=== PATIENT | male | born 1935 | race Caucasian/White ===

== ENCOUNTER 2018-04-06 12:44 | Inpatient (IN) | payer MEDICARE, OTHER ==
[2018-04-06 13:49] LABS: ADD MAN DIFF? NO
[2018-04-06 13:55] LABS: ABNORMAL IP MESSAGE 1; BASOPHILS % 0.4 % (0.0-2.0); EOSINOPHILS # 0.2 10^3/ul (0.0-0.5); EOSINOPHILS % 2.1 % (0.0-7.0); HEMATOCRIT 36.8 % (42.0-52.0); HEMOGLOBIN 11.1 g/dl (14.0-18.0); LYMPHOCYTES # 2.7 10^3/ul (0.8-2.9); LYMPHOCYTES % 26.6 % (15.0-51.0); MEAN CORPUSCULAR HEMOGLOBIN 18.2 pg (29.0-33.0); MEAN CORPUSCULAR HGB CONC 30.2 g/dl (32.0-37.0); MEAN CORPUSCULAR VOLUME 60.2 fl (82.0-101.0); MEAN PLATELET VOLUME 10.7 fl (7.4-10.4); MONOCYTE # 0.9 10^3/ul (0.3-0.9); MONOCYTES % 8.4 % (0.0-11.0); NEUTROPHIL # 6.3 10^3/ul (1.6-7.5); NEUTROPHILS % 62.1 % (39.0-77.0); PLATELET COUNT 337 10^3/UL (140-415); POSITIVE DIFF @See below; RED BLOOD COUNT 6.11 10^6/ul (4.70-6.10); RED CELL DISTRIBUTION WIDTH 17.7 % (11.5-14.5)
[2018-04-06 13:55] LABS: WHITE BLOOD COUNT 10.2 10^3/ul (4.8-10.8)
[2018-04-06] MEDS ORDERED: ACETAMINOPHEN 325 MG TAB PO ×2 (14:00→14:30)
[2018-04-06] MEDS ORDERED: ONDANSETRON 4 MG INJ IV ×3 (14:00→15:00)
[2018-04-06 14:15] LABS: INR 1.18; PROTIME 15.2 Sec (11.9-14.9); PT RATIO 1.2
[2018-04-06 14:16] LABS: PARTIAL THROMBOPLASTIN TIME 36.2 Sec (25.0-35.0)
[2018-04-06] MEDS ORDERED: D5W-0.45 NACL + KCL 20 MEQ 1,000 ML IV (14:19)
[2018-04-06 14:22] LABS: ALANINE AMINOTRANSFERASE 25 IU/L (13-69); ALBUMIN 3.4 g/dl (3.3-4.9); ALBUMIN/GLOBULIN RATIO 0.91; ALKALINE PHOSPHATASE 102 IU/L (42-121); ANION GAP 13 (8-16); ASPARTATE AMINO TRANSFERASE 23 IU/L (15-46); BILIRUBIN,INDIRECT 0.9 mg/dl (0-1.1); BILIRUBIN,TOTAL 0.9 mg/dl (0.2-1.3); BLOOD UREA NITROGEN 6 mg/dl (7-20); CARBON DIOXIDE 28 mmol/L (21-31); CHLORIDE 105 mmol/L (97-110); CREATININE 0.69 mg/dl (0.61-1.24); GLUCOSE 127 mg/dl (70-220); LIPASE 102 U/L (23-300); POTASSIUM 3.5 mmol/L (3.5-5.1); SODIUM 142 mmol/L (135-144); TOTAL PROTEIN 7.1 g/dl (6.1-8.1)
[2018-04-06 14:26] LABS: TROPONIN-I < 0.012 ng/ml (0.000-0.120)
[2018-04-06] MEDS ORDERED: NACL 0.9% 3 ML SYG IV ×2 (14:30→15:00)
[2018-04-06] MEDS ORDERED: BISACODYL 10 MG SUPP PR ×2 (14:30→15:00)
[2018-04-06] MEDS ORDERED: ACETAMINOPHEN 650 MG SUPP PR ×2 (14:30→15:00)
[2018-04-06] MEDS ORDERED: MAGNESIUM HYDROXIDE 30ML CUP PO (14:30)
[2018-04-06] MEDS ORDERED: morphine 2 MG INJ IV (14:30)
[2018-04-06] MEDS ORDERED: HYDROCODONE/APAP (5/325) TAB PO ×2 (14:30)
[2018-04-06] MEDS ORDERED: DOCUSATE SODIUM 100 MG CAP PO (14:30)
[2018-04-06] MEDS: DEXTROSE 5%-0.45% NACL 1,000 ML IV (16:19)
[2018-04-06] MEDS ORDERED: PENDING SANTYL ORDER FOR WOUND CARE XX (16:30)
[2018-04-06] MEDS: RIVAROXABAN 20 MG TABLET PO (17:34)
[2018-04-06] MEDS: QUETIAPINE 25 MG TAB PO (21:00)
[2018-04-06] MEDS: LORAZEPAM 2 MG INJ IV (21:49)
[2018-04-06] MEDS: LATANOPROST 0.005% 2.5 ML OPH BOTH EYES (23:32)
[2018-04-06] MEDS: TIMOLOL 0.25% 5 ML OPH BOTH EYES (23:32)
[2018-04-07] MEDS: PANTOPRAZOLE 40 MG INJ IV (05:38)
[2018-04-07] MEDS: DEXTROSE 5%-0.45% NACL 1,000 ML IV ×2 (05:38→18:03)
[2018-04-07 07:06] LABS: ADD MAN DIFF? NO
[2018-04-07 07:17] LABS: WHITE BLOOD COUNT 6.7 10^3/ul (4.8-10.8)
[2018-04-07 07:17] LABS: ABNORMAL IP MESSAGE 1; BASOPHILS % 0.4 % (0.0-2.0); EOSINOPHILS # 0.2 10^3/ul (0.0-0.5); EOSINOPHILS % 2.5 % (0.0-7.0); HEMATOCRIT 36.1 % (42.0-52.0); HEMOGLOBIN 10.8 g/dl (14.0-18.0); LYMPHOCYTES # 1.4 10^3/ul (0.8-2.9); LYMPHOCYTES % 20.8 % (15.0-51.0); MEAN CORPUSCULAR HEMOGLOBIN 18.1 pg (29.0-33.0); MEAN CORPUSCULAR HGB CONC 29.9 g/dl (32.0-37.0); MEAN CORPUSCULAR VOLUME 60.6 fl (82.0-101.0); MONOCYTE # 0.7 10^3/ul (0.3-0.9); MONOCYTES % 10.4 % (0.0-11.0); NEUTROPHIL # 4.4 10^3/ul (1.6-7.5); NEUTROPHILS % 65.6 % (39.0-77.0); POSITIVE DIFF @See below; RED BLOOD COUNT 5.96 10^6/ul (4.70-6.10); RED CELL DISTRIBUTION WIDTH 17.8 % (11.5-14.5)
[2018-04-07 07:19] LABS: PLATELET COUNT 248 10^3/UL (140-415)
[2018-04-07 07:24] LABS: HEMOGLOBIN A1C 5.6 % (0-5.9)
[2018-04-07 07:40] LABS: ALANINE AMINOTRANSFERASE 20 IU/L (13-69); ALBUMIN 3.1 g/dl (3.3-4.9); ALBUMIN/GLOBULIN RATIO 0.83; ALKALINE PHOSPHATASE 96 IU/L (42-121); ANION GAP 13 (8-16); ASPARTATE AMINO TRANSFERASE 25 IU/L (15-46); BILIRUBIN,INDIRECT 0.9 mg/dl (0-1.1); BILIRUBIN,TOTAL 0.9 mg/dl (0.2-1.3); BLOOD UREA NITROGEN 6 mg/dl (7-20); CALCIUM 8.6 mg/dl (8.4-10.2); CARBON DIOXIDE 27 mmol/L (21-31); CHLORIDE 105 mmol/L (97-110); CHOL/HDL RATIO 4.3 RATIO; CHOLESTEROL 108 mg/dl (100-200); GLUCOSE 97 mg/dl (70-220); HDL CHOLESTEROL 25 mg/dl (31-75); LDL CHOLESTEROL,CALCULATED 70 mg/dl; PHOSPHORUS 2.8 mg/dl (2.5-4.9); POTASSIUM 3.3 mmol/L (3.5-5.1); SODIUM 142 mmol/L (135-144); TOTAL PROTEIN 6.8 g/dl (6.1-8.1); TRIGLYCERIDES 67 mg/dl (0-149)
[2018-04-07 08:12] LABS: PREALBUMIN 8.6 mg/dl (17.6-36.0)
[2018-04-07 09:00] LABS: FREE THYROXINE INDEX (Calc) 3.27 ug/ml (0.65-3.89)
[2018-04-07 09:08] LABS: T3 UPTAKE 43.6 % (23.5-40.5); T4 (THYROXINE) 7.5 ug/dl (5.5-11.0)
[2018-04-07 09:54] LABS: CARCINOEMBRYONIC ANTIGEN 0.9 ng/ml (0.0-5.0)
[2018-04-07] MEDS: TIMOLOL 0.25% 5 ML OPH BOTH EYES ×2 (11:40→20:40)
[2018-04-07 12:37] LABS: AMMONIA 10 umol/l (9-30)
[2018-04-07] MEDS: POTASSIUM CHLORIDE 100 ML IVPB ×2 (18:26→20:39)
[2018-04-07 18:47] LABS: INR 1.15; PROTIME 14.9 Sec (11.9-14.9); PT RATIO 1.2
[2018-04-07 19:44] LABS: ADD UMIC NO; UR ASCORBIC ACID NEGATIVE (NEGATIVE); UR BILIRUBIN (Dip) NEGATIVE (NEGATIVE); UR BLOOD (Dip) NEGATIVE (NEGATIVE); UR CLARITY CLEAR (CLEAR); UR COLOR YELLOW (YELLOW); UR GLUCOSE (Dip) NEGATIVE (NEGATIVE); UR KETONES (Dip) NEGATIVE (NEGATIVE); UR LEUKOCYTE ESTERASE (Dip) NEGATIVE Leu/ul (NEGATIVE); UR NITRITE (Dip) NEGATIVE (NEGATIVE); UR SPECIFIC GRAVITY (Dip) 1.014 (1.003-1.030); UR TOTAL PROTEIN (Dip) NEGATIVE (NEGATIVE); UR UROBILINOGEN (Dip) NEGATIVE (NEGATIVE)
[2018-04-07 20:19] LABS: AMPHETAMINE/METHAMPHETAMINE Negative (NEGATIVE); BARBITURATES Negative (NEGATIVE); BENZODIAZEPINES Negative (NEGATIVE); CANNABINOIDS Negative (NEGATIVE); COCAINE Negative (NEGATIVE); OPIATES Negative (NEGATIVE)
[2018-04-08] MEDS: LATANOPROST 0.005% 2.5 ML OPH BOTH EYES ×2 (00:21→22:14)
[2018-04-08] MEDS: DEXTROSE 5%-0.45% NACL 1,000 ML IV (03:29)
[2018-04-08] MEDS: PANTOPRAZOLE 40 MG INJ IV (08:01)
[2018-04-08 09:11] LABS: ADD MAN DIFF? NO
[2018-04-08 09:18] LABS: ABNORMAL IP MESSAGE 1; BASOPHILS % 0.4 % (0.0-2.0); EOSINOPHILS # 0.1 10^3/ul (0.0-0.5); EOSINOPHILS % 1.9 % (0.0-7.0); HEMATOCRIT 34.8 % (42.0-52.0); HEMOGLOBIN 10.6 g/dl (14.0-18.0); LYMPHOCYTES # 1.6 10^3/ul (0.8-2.9); LYMPHOCYTES % 23.9 % (15.0-51.0); MEAN CORPUSCULAR HEMOGLOBIN 18.2 pg (29.0-33.0); MEAN CORPUSCULAR HGB CONC 30.5 g/dl (32.0-37.0); MEAN CORPUSCULAR VOLUME 59.9 fl (82.0-101.0); MONOCYTE # 0.8 10^3/ul (0.3-0.9); MONOCYTES % 11.9 % (0.0-11.0); NEUTROPHIL # 4.1 10^3/ul (1.6-7.5); NEUTROPHILS % 61.5 % (39.0-77.0); PLATELET COUNT 270 10^3/UL (140-415); POSITIVE DIFF @See below; RED BLOOD COUNT 5.81 10^6/ul (4.70-6.10); RED CELL DISTRIBUTION WIDTH 17.2 % (11.5-14.5)
[2018-04-08 09:18] LABS: WHITE BLOOD COUNT 6.7 10^3/ul (4.8-10.8)
[2018-04-08 09:35] LABS: ANION GAP 10 (8-16); BLOOD UREA NITROGEN 4 mg/dl (7-20); CALCIUM 8.8 mg/dl (8.4-10.2); CARBON DIOXIDE 28 mmol/L (21-31); CHLORIDE 108 mmol/L (97-110); CREATININE 0.62 mg/dl (0.61-1.24); GLUCOSE 85 mg/dl (70-220); MAGNESIUM 1.9 mg/dl (1.7-2.5); POTASSIUM 4.1 mmol/L (3.5-5.1); SODIUM 142 mmol/L (135-144)
[2018-04-08] MEDS: TIMOLOL 0.25% 5 ML OPH BOTH EYES ×2 (12:30→21:00)
[2018-04-08] MEDS ORDERED: PHENYLephrine (100 MCG/ML) 5ML SYG (15:16)
[2018-04-08] MEDS: D5W-0.45 NACL + KCL 20 MEQ 1,000 ML IV (16:50)
[2018-04-09] MEDS: PANTOPRAZOLE 40 MG INJ IV (05:36)
[2018-04-09] MEDS: D5W-0.45 NACL + KCL 20 MEQ 1,000 ML IV ×3 (05:37→22:53)
[2018-04-09 07:01] LABS: ADD MAN DIFF? NO
[2018-04-09 07:06] LABS: BASOPHILS % 0.2 % (0.0-2.0); HEMATOCRIT 34.5 % (42.0-52.0); HEMOGLOBIN 10.4 g/dl (14.0-18.0); LYMPHOCYTES # 1.5 10^3/ul (0.8-2.9); LYMPHOCYTES % 26.8 % (15.0-51.0); MEAN CORPUSCULAR HGB CONC 30.1 g/dl (32.0-37.0); MEAN CORPUSCULAR VOLUME 59.7 fl (82.0-101.0); MONOCYTE # 0.4 10^3/ul (0.3-0.9); MONOCYTES % 7.7 % (0.0-11.0); NEUTROPHIL # 3.6 10^3/ul (1.6-7.5); NEUTROPHILS % 64.8 % (39.0-77.0); POSITIVE DIFF @See below; RED BLOOD COUNT 5.78 10^6/ul (4.70-6.10); RED CELL DISTRIBUTION WIDTH 18.2 % (11.5-14.5)
[2018-04-09 07:06] LABS: WHITE BLOOD COUNT 5.5 10^3/ul (4.8-10.8)
[2018-04-09 07:10] LABS: PLATELET COUNT 213 10^3/UL (140-415)
[2018-04-09 07:36] LABS: ANION GAP 12 (8-16); BLOOD UREA NITROGEN 7 mg/dl (7-20); CALCIUM 8.7 mg/dl (8.4-10.2); CARBON DIOXIDE 23 mmol/L (21-31); CHLORIDE 108 mmol/L (97-110); GLUCOSE 120 mg/dl (70-220); MAGNESIUM 1.9 mg/dl (1.7-2.5); POTASSIUM 4.4 mmol/L (3.5-5.1); SODIUM 139 mmol/L (135-144)
[2018-04-09] MEDS: TIMOLOL 0.25% 5 ML OPH BOTH EYES ×2 (09:23→21:01)
[2018-04-09] MEDS: LATANOPROST 0.005% 2.5 ML OPH BOTH EYES (20:58)
[2018-04-10] MEDS: PANTOPRAZOLE 40 MG INJ IV (06:53)
[2018-04-10] MEDS ORDERED: CEFAZOLIN 1 GM INJ (07:39)
[2018-04-10] MEDS ORDERED: ETOMIDATE 20 MG INJ (07:39)
[2018-04-10] MEDS ORDERED: FENTAnyl 50 MCG/ML VIAL (07:39)
[2018-04-10] MEDS: BUPIVACAINE 0.25% (MPF) 30 ML INJ (08:17)
[2018-04-10] MEDS: LIDOCAINE 1%/EPI 30 ML INJ (08:17)
[2018-04-10] MEDS: TIMOLOL 0.25% 5 ML OPH BOTH EYES ×2 (08:25→20:48)
[2018-04-10] MEDS ORDERED: morphine 2 MG INJ IV (09:00)
[2018-04-10] MEDS ORDERED: ONDANSETRON 4 MG INJ IV (09:00)
[2018-04-10] MEDS: LATANOPROST 0.005% 2.5 ML OPH BOTH EYES (20:48)
[2018-04-10] MEDS: D5W-0.45 NACL + KCL 20 MEQ 1,000 ML IV (21:50)
[2018-04-11] MEDS: D5W-0.45 NACL + KCL 20 MEQ 1,000 ML IV (04:33)
[2018-04-11] MEDS: PANTOPRAZOLE 40 MG INJ IV (05:57)
[2018-04-11] MEDS: SENNA TAB GTB ×2 (08:43→20:57)
[2018-04-11] MEDS: TIMOLOL 0.25% 5 ML OPH BOTH EYES ×2 (08:43→20:57)
[2018-04-11 08:53] LABS: ADD MAN DIFF? NO
[2018-04-11 08:57] LABS: ABNORMAL IP MESSAGE 1; BASOPHILS % 0.2 % (0.0-2.0); EOSINOPHILS % 0.3 % (0.0-7.0); HEMATOCRIT 36.4 % (42.0-52.0); HEMOGLOBIN 10.9 g/dl (14.0-18.0); LYMPHOCYTES # 2.3 10^3/ul (0.8-2.9); LYMPHOCYTES % 16.9 % (15.0-51.0); MEAN CORPUSCULAR HEMOGLOBIN 17.9 pg (29.0-33.0); MEAN CORPUSCULAR HGB CONC 29.9 g/dl (32.0-37.0); MEAN CORPUSCULAR VOLUME 59.7 fl (82.0-101.0); MEAN PLATELET VOLUME 10.4 fl (7.4-10.4); MONOCYTE # 1.3 10^3/ul (0.3-0.9); NEUTROPHIL # 9.6 10^3/ul (1.6-7.5); PLATELET COUNT 260 10^3/UL (140-415); POSITIVE DIFF @See below; RED CELL DISTRIBUTION WIDTH 17.4 % (11.5-14.5)
[2018-04-11 08:57] LABS: WHITE BLOOD COUNT 13.4 10^3/ul (4.8-10.8)
[2018-04-11 09:25] LABS: ANION GAP 6 (8-16); BLOOD UREA NITROGEN 8 mg/dl (7-20); CALCIUM 8.9 mg/dl (8.4-10.2); CARBON DIOXIDE 27 mmol/L (21-31); CHLORIDE 107 mmol/L (97-110); CREATININE 0.73 mg/dl (0.61-1.24); GLUCOSE 123 mg/dl (70-220); MAGNESIUM 1.8 mg/dl (1.7-2.5); PHOSPHORUS 2.6 mg/dl (2.5-4.9); POTASSIUM 4.1 mmol/L (3.5-5.1); SODIUM 136 mmol/L (135-144)
[2018-04-11] MEDS: LATANOPROST 0.005% 2.5 ML OPH BOTH EYES (20:57)
== END 2018-04-11 22:00 | DRG 326 ==
LOC: ICU 04-08 05:37 → E/R 12:44 → MS4 04-08 18:29 → PP2 15:38
PROC: 0DH60UZ Insertion of Feeding Device into Stomach, Open Approach (ICD-10-PCS; principal; 2018-04-08 14:00)
PROC: 0DJ08ZZ Inspection of Upper Intestinal Tract, Via Natural or Artificial Opening Endoscopic (ICD-10-PCS; 2018-04-08 14:00)
DX: R13.19 Other dysphagia (principal); E43 Unspecified severe protein-calorie malnutrition; G93.41 Metabolic encephalopathy; R64 Cachexia; R62.7 Adult failure to thrive; G30.9 Alzheimer's disease, unspecified; F02.80 Dementia in other diseases classified elsewhere, unspecified severity, without behavioral disturbance, psychotic disturbance, mood disturbance, and anxiety; I48.2 Chronic atrial fibrillation; D64.9 Anemia, unspecified; E86.0 Dehydration; I35.0 Nonrheumatic aortic (valve) stenosis; R00.1 Bradycardia, unspecified; K44.9 Diaphragmatic hernia without obstruction or gangrene; K29.40 Chronic atrophic gastritis without bleeding; K20.9 Esophagitis, unspecified; Z74.01 Bed confinement status
CPT/HCPCS: 36415; 70551; 71045; 74177; 80048; 80053; 80061; 80307; 81003; 82140; 82378; 82607; 83036; 83690; 83735; 84100; 84134; 84436; 84443; 84479; 84484; 85025; 85610; 85730; 86850; 86900; 86901; 87081; 92610; 93005; 93306; 95819; 96374; 97162; 99285-25; G0378